=== PATIENT | male | born 1945 | race Caucasian/White ===

== ENCOUNTER 2023-12-04 15:12 | Inpatient (IN) | payer OTHER ==
[~2023-12-04] VITALS: Ht 167.6 cm; Wt 66.7 kg
[2023-12-04 15:34] VITALS: BP_SYST 111; PULSE 73; RESP 22; TEMP 97.3; O2SAT 98
[2023-12-04 17:32] LABS: BASOPHILS % (AUTO) 0.1 % (0.0-2.0); HEMOGLOBIN 8.7 g/dL (14.0-18.0); LYMPHOCYTES # (AUTO) 0.3 K/uL (1.0-5.5); LYMPHOCYTES % (AUTO) 5.8 % (20.5-51.5); MEAN CORPUSCULAR HEMOGLOBIN 24 pg (27-31); MEAN CORPUSCULAR HGB CONC 32 % (32-36); MEAN CORPUSCULAR VOLUME 75 fL (79.0-98.0); MONOCYTES # (AUTO) 0.3 K/uL (0.0-1.0); MONOCYTES % (AUTO) 5.9 % (1.7-9.3); NEUTROPHILS # (AUTO) 4.9 K/uL (1.8-7.7); NEUTROPHILS % (AUTO) 88.2 % (40.0-70.0); PLATELET COUNT (AUTO) 242 K/uL (130-430); RED BLOOD CELL COUNT(AUTO) 3.59 MIL/uL (4.2-6.2); RED CELL DISTRIBUTION WIDTH 26.5 % (9.0-15.0); WHITE BLOOD COUNT (AUTO) 5.6 K/uL (4.8-10.8)
[2023-12-04 17:44] LABS: ANION GAP 9 (5-15); CALCIUM 8.2 mg/dL (8.4-11.0); CARBON DIOXIDE 24 mmol/L (23-29); CHLORIDE 103 mmol/L (98-107); CREATININE 0.76 mg/dL (0.55-1.30); GLUCOSE 88 mg/dL (74-106); POTASSIUM 4.1 mmol/L (3.5-5.1); SODIUM SERUM 136 mmol/L (136-145); UREA NITROGEN, BLOOD 12 mg/dL (8-21)
[2023-12-04 17:45] LABS: INR 1.6 (0.80-1.20); PROTHROMBIN TIME 16.6 SECS (9.5-12.5)
[2023-12-04 17:46] LABS: ANISOCYTOSIS 2+; OVALOCYTES MODERATE
[2023-12-04 17:58] LABS: ALANINE AMINOTRANSFERASE 28 U/L (12-78); ALBUMIN 2.6 g/dL (3.4-4.8); ASPARTATE AMINOTRANSFERASE 24 U/L (10-37); BILIRUBIN,DIRECT 0.4 mg/dL (0.0-0.3); CREATINE KINASE, TOTAL 46 U/L (39-308); FREE T4 (FREE THYROXINE) 1.4 ng/dL (0.6-1.6); THYROID STIMULATING HORMONE 6.85 uIu/mL (0.34-4.82); TOTAL BILIRUBIN 0.9 mg/dL (0.0-1.0); TOTAL PROTEIN, SERUM 6.9 g/dL (6.4-8.3)
[2023-12-04] MEDS ORDERED: TAMS0.4C96 PO (18:52)
[2023-12-04] MEDS ORDERED: LEVO50TA8 PO (18:52)
[2023-12-04] MEDS ORDERED: AMIO200T68 PO (18:52)
[2023-12-04] MEDS ORDERED: LISI10TA29 PO (18:52)
[2023-12-04] MEDS ORDERED: ATOR20TA64 PO (18:52)
[2023-12-04] MEDS ORDERED: CARV25TA55 PO (18:52)
[2023-12-04] MEDS ORDERED: MORPHINE 2 MG/ML INJ. SYRINGE IVP ONE (19:00)
[2023-12-04 19:39] LABS: BILIRUBIN,URINE NEGATIVE (NEGATIVE); BLOOD, URINE 2+ (NEGATIVE); CLARITY/URINE CLEAR (CLEAR); COLOR,URINE YELLOW (YELLOW); GLUCOSE,URINE NEGATIVE (NEGATIVE); KETONES,URINE NEGATIVE (NEGATIVE); LEUKOCYTE ESTERASE ,URINE NEGATIVE (NEGATIVE); NITRITE, URINE NEGATIVE (NEGATIVE); PROTEIN URINE TRACE (NEGATIVE); UROBILINOGEN,URINE 0.2 (0.2-1.0)
[2023-12-04 20:00] VITALS: BP_SYST 140; PULSE 90; RESP 18; TEMP 100; O2SAT 93
[2023-12-04 20:09] LABS: BACTERIA,URINE FEW /HPF (None Seen); WBC,URINE 0-3 /HPF (0-3)
[2023-12-04 20:10] LABS: MUCUS,URINE 2+ /LPF (None Seen)
[2023-12-04 21:25] VITALS: BP_SYST 130; PULSE 82; RESP 20; TEMP 98; O2SAT 95
[2023-12-04] MEDS ORDERED: NALOXONE HCL 0.4 MG/ML AMP (NARCAN) IVP PRN (22:15)
[2023-12-04] MEDS ORDERED: ACETAMINOPHEN 325 MG TABLET PO PRN (22:15)
[2023-12-04] MEDS: D5/0.45 NS 1,000 ML IV SCH (23:25)
[2023-12-05] MEDS: HYDROmorphone 1 MG/ML INJ. CARTRIDGE IVP PRN ×3 (04:20→20:47)
[2023-12-05 07:44] LABS: BASOPHILS % (AUTO) 0.1 % (0.0-2.0); EOSINOPHILS % (AUTO) 0.1 % (0.0-4.0); HEMATOCRIT 24.3 % (36-54); HEMOGLOBIN 7.8 g/dL (14.0-18.0); LYMPHOCYTES # (AUTO) 0.3 K/uL (1.0-5.5); LYMPHOCYTES % (AUTO) 7.1 % (20.5-51.5); MEAN CORPUSCULAR HEMOGLOBIN 24 pg (27-31); MEAN CORPUSCULAR HGB CONC 32 % (32-36); MEAN CORPUSCULAR VOLUME 75 fL (79.0-98.0); MONOCYTES # (AUTO) 0.4 K/uL (0.0-1.0); MONOCYTES % (AUTO) 7.5 % (1.7-9.3); NEUTROPHILS # (AUTO) 4.1 K/uL (1.8-7.7); NEUTROPHILS % (AUTO) 85.2 % (40.0-70.0); PLATELET COUNT (AUTO) 191 K/uL (130-430); RED BLOOD CELL COUNT(AUTO) 3.24 MIL/uL (4.2-6.2); RED CELL DISTRIBUTION WIDTH 27.2 % (9.0-15.0); WHITE BLOOD COUNT (AUTO) 4.8 K/uL (4.8-10.8)
[2023-12-05 07:55] LABS: TOTAL IRON BIND. CAPACITY 201 ug/dL (250-450)
[2023-12-05 07:59] LABS: ANION GAP 8 (5-15); CALCIUM 8.1 mg/dL (8.4-11.0); CARBON DIOXIDE 23 mmol/L (23-29); CHLORIDE 106 mmol/L (98-107); CREATININE 0.67 mg/dL (0.55-1.30); GLUCOSE 97 mg/dL (74-106); POTASSIUM 3.8 mmol/L (3.5-5.1); SODIUM SERUM 137 mmol/L (136-145); UREA NITROGEN, BLOOD 10 mg/dL (8-21)
[2023-12-05 08:00] VITALS: BP_SYST 118; PULSE 77; RESP 16; TEMP 98; O2SAT 98
[2023-12-05] MEDS: LEVOTHYROXINE SODIUM 0.05 MG TABLET PO SCH (09:00)
[2023-12-05] MEDS: CARVEDILOL 25 MG TABLET (COREG) PO SCH ×2 (09:00→20:47)
[2023-12-05] MEDS: ATORVASTATIN 20 MG TABLET PO SCH (09:00)
[2023-12-05] MEDS: AMIODARONE HCL 200 MG TABLET PO SCH (09:00)
[2023-12-05] MEDS: TAMSULOSIN HCL 0.4 MG CAP PO SCH (09:00)
[2023-12-05] MEDS: LISINOPRIL 10 MG TABLET (PRINIVIL) PO SCH (09:00)
[2023-12-05 10:00] VITALS: O2SAT 98
[2023-12-05 12:00] VITALS: BP_SYST 120; PULSE 80; RESP 16; TEMP 98; O2SAT 98
[2023-12-05 12:16] VITALS: BP_SYST 139; PULSE 78; RESP 18; TEMP 97.9; O2SAT 97
[2023-12-05] MEDS ORDERED: DIATR MEGLU/DIATRIZ SOD 30 ML SOLUTION PO ONE (13:41)
[2023-12-05] MEDS: D5/0.45 NS 1,000 ML IV SCH (15:06)
[2023-12-05 16:00] VITALS: BP_SYST 121; PULSE 78; RESP 17; TEMP 98; O2SAT 97
[2023-12-05 16:52] VITALS: BP_SYST 128; PULSE 87; RESP 18; TEMP 98; O2SAT 98
[2023-12-05 17:10] LABS: BASOPHILS % (AUTO) 0.3 % (0.0-2.0); HEMOGLOBIN 9.4 g/dL (14.0-18.0); LYMPHOCYTES # (AUTO) 0.3 K/uL (1.0-5.5); LYMPHOCYTES % (AUTO) 3.5 % (20.5-51.5); MEAN CORPUSCULAR HEMOGLOBIN 25 pg (27-31); MEAN CORPUSCULAR HGB CONC 33 % (32-36); MEAN CORPUSCULAR VOLUME 76 fL (79.0-98.0); MONOCYTES # (AUTO) 0.6 K/uL (0.0-1.0); MONOCYTES % (AUTO) 7.7 % (1.7-9.3); NEUTROPHILS # (AUTO) 6.4 K/uL (1.8-7.7); NEUTROPHILS % (AUTO) 88.5 % (40.0-70.0); PLATELET COUNT (AUTO) 228 K/uL (130-430); RED BLOOD CELL COUNT(AUTO) 3.84 MIL/uL (4.2-6.2); WHITE BLOOD COUNT (AUTO) 7.3 K/uL (4.8-10.8)
[2023-12-05 19:11] LABS: ANISOCYTOSIS 3+; HYPOCHROMASIA 1+; OVALOCYTES MODERATE; TEAR DROP CELLS FEW
[2023-12-05] MEDS: guaiFENesin/DEXTROMETHORPHAN 10 ML UDC PO PRN (20:46)
[2023-12-06] VITALS (8 sets, daily range): BP systolic 112–127; PULSE 69–81; RESP 16–18; TEMP 98–99; O2SAT 93–98
[2023-12-06] MEDS: guaiFENesin/DEXTROMETHORPHAN 10 ML UDC PO PRN ×3 (04:52→16:40)
[2023-12-06 06:45] LABS: ALANINE AMINOTRANSFERASE 19 U/L (12-78); ANION GAP 8 (5-15); ASPARTATE AMINOTRANSFERASE 23 U/L (10-37); CALCIUM 8.2 mg/dL (8.4-11.0); CARBON DIOXIDE 23 mmol/L (23-29); CHLORIDE 103 mmol/L (98-107); CREATININE 0.69 mg/dL (0.55-1.30); GLUCOSE 132 mg/dL (74-106); SODIUM SERUM 134 mmol/L (136-145); TOTAL BILIRUBIN 1.1 mg/dL (0.0-1.0); UREA NITROGEN, BLOOD 10 mg/dL (8-21)
[2023-12-06] MEDS: HYDROmorphone 1 MG/ML INJ. CARTRIDGE IVP PRN ×2 (07:04→21:20)
[2023-12-06 07:18] LABS: BASOPHILS % (AUTO) 0.1 % (0.0-2.0); HEMATOCRIT 26.6 % (36-54); HEMOGLOBIN 8.6 g/dL (14.0-18.0); LYMPHOCYTES # (AUTO) 0.2 K/uL (1.0-5.5); LYMPHOCYTES % (AUTO) 3.4 % (20.5-51.5); MEAN CORPUSCULAR HEMOGLOBIN 24 pg (27-31); MEAN CORPUSCULAR HGB CONC 32 % (32-36); MEAN CORPUSCULAR VOLUME 75 fL (79.0-98.0); MONOCYTES # (AUTO) 0.5 K/uL (0.0-1.0); MONOCYTES % (AUTO) 6.9 % (1.7-9.3); NEUTROPHILS # (AUTO) 6.5 K/uL (1.8-7.7); PLATELET COUNT (AUTO) 197 K/uL (130-430); RED BLOOD CELL COUNT(AUTO) 3.57 MIL/uL (4.2-6.2); RED CELL DISTRIBUTION WIDTH 27.1 % (9.0-15.0); WHITE BLOOD COUNT (AUTO) 7.3 K/uL (4.8-10.8)
[2023-12-06 07:30] LABS: NEUTROPHILS % (AUTO) 89.6 % (40.0-70.0)
[2023-12-06] MEDS: TAMSULOSIN HCL 0.4 MG CAP PO SCH (08:27)
[2023-12-06] MEDS: LEVOTHYROXINE SODIUM 0.05 MG TABLET PO SCH (08:27)
[2023-12-06] MEDS: ATORVASTATIN 20 MG TABLET PO SCH (08:27)
[2023-12-06] MEDS: AMIODARONE HCL 200 MG TABLET PO SCH (08:28)
[2023-12-06] MEDS: CARVEDILOL 25 MG TABLET (COREG) PO SCH ×2 (08:28→20:43)
[2023-12-06] MEDS: LISINOPRIL 10 MG TABLET (PRINIVIL) PO SCH (08:29)
[2023-12-06] MEDS: D5/0.45 NS 1,000 ML IV SCH (08:29)
[2023-12-07] VITALS (9 sets, daily range): BP systolic 107–114; PULSE 60–84; RESP 14–18; TEMP 97.2–99.4; O2SAT 93–96
[2023-12-07 05:14] LABS: INR 1.3 (0.80-1.20); PROTHROMBIN TIME 13.5 SECS (9.5-12.5)
[2023-12-07 05:50] LABS: ALANINE AMINOTRANSFERASE 26 U/L (12-78); ALBUMIN 1.9 g/dL (3.4-4.8); ANION GAP 10 (5-15); ASPARTATE AMINOTRANSFERASE 36 U/L (10-37); CALCIUM 8.5 mg/dL (8.4-11.0); CARBON DIOXIDE 23 mmol/L (23-29); CHLORIDE 102 mmol/L (98-107); CREATININE 0.64 mg/dL (0.55-1.30); GLUCOSE 114 mg/dL (74-106); LIPASE 63 U/L (16-77); POTASSIUM 4.2 mmol/L (3.5-5.1); SODIUM SERUM 135 mmol/L (136-145); TOTAL BILIRUBIN 1.1 mg/dL (0.0-1.0); TOTAL PROTEIN, SERUM 5.9 g/dL (6.4-8.3); UREA NITROGEN, BLOOD 13 mg/dL (8-21)
[2023-12-07 06:20] LABS: BASOPHILS % (AUTO) 0.2 % (0.0-2.0); EOSINOPHILS % (AUTO) 0.2 % (0.0-4.0); HEMATOCRIT 25.7 % (36-54); HEMOGLOBIN 8.2 g/dL (14.0-18.0); LYMPHOCYTES # (AUTO) 0.3 K/uL (1.0-5.5); LYMPHOCYTES % (AUTO) 4.7 % (20.5-51.5); MEAN CORPUSCULAR HEMOGLOBIN 24 pg (27-31); MEAN CORPUSCULAR HGB CONC 32 % (32-36); MEAN CORPUSCULAR VOLUME 75 fL (79.0-98.0); MONOCYTES # (AUTO) 0.5 K/uL (0.0-1.0); MONOCYTES % (AUTO) 8.2 % (1.7-9.3); NEUTROPHILS # (AUTO) 5.2 K/uL (1.8-7.7); NEUTROPHILS % (AUTO) 86.7 % (40.0-70.0); PLATELET COUNT (AUTO) 170 K/uL (130-430); RED BLOOD CELL COUNT(AUTO) 3.42 MIL/uL (4.2-6.2); RED CELL DISTRIBUTION WIDTH 27.5 % (9.0-15.0)
[2023-12-07] MEDS: AMIODARONE HCL 200 MG TABLET PO SCH (10:21)
[2023-12-07] MEDS: ATORVASTATIN 20 MG TABLET PO SCH (10:21)
[2023-12-07] MEDS: TAMSULOSIN HCL 0.4 MG CAP PO SCH (10:21)
[2023-12-07] MEDS: CARVEDILOL 25 MG TABLET (COREG) PO SCH ×2 (10:22→20:50)
[2023-12-07] MEDS: LEVOTHYROXINE SODIUM 0.05 MG TABLET PO SCH (10:22)
[2023-12-07] MEDS: LISINOPRIL 10 MG TABLET (PRINIVIL) PO SCH (10:23)
[2023-12-07] MEDS ORDERED: LevALBUTEROL HCL 1.25 MG/0.5 ML *CONC.* VIAL.NEB (XOPENEX CONC.) INH PRN (15:30)
[2023-12-07] MEDS ORDERED: LevALBUTEROL HCL 1.25 MG/0.5 ML *CONC.* VIAL.NEB (XOPENEX CONC.) INH ONE (15:45)
[2023-12-07] MEDS: SOD FERRIC GLUC COMPLEX/SUC 125 MG in NS 100 ML IV SCH (17:15)
[2023-12-07] MEDS: FERROUS SULFATE 325 MG TABLET.DR PO SCH (20:50)
[2023-12-07] MEDS: MEGESTROL ACETATE 400 MG/10 ML UDC PO SCH (20:50)
[2023-12-07 22:07] LABS: FOLATE (FOLIC ACID) 15.8 ng/mL (>3.0)
[2023-12-07] MEDS: LevALBUTEROL HCL 1.25 MG/0.5 ML *CONC.* VIAL.NEB (XOPENEX CONC.) INH SCH (22:13)
[2023-12-08] VITALS (10 sets, daily range): BP systolic 103–126; PULSE 63–89; RESP 16–18; TEMP 97.5–98.9; O2SAT 93–97
[2023-12-08 04:48] LABS: EOSINOPHILS % (AUTO) 0.4 % (0.0-4.0); HEMATOCRIT 25.4 % (36-54); HEMOGLOBIN 8.2 g/dL (14.0-18.0); LYMPHOCYTES # (AUTO) 0.3 K/uL (1.0-5.5); LYMPHOCYTES % (AUTO) 5.9 % (20.5-51.5); MEAN CORPUSCULAR HEMOGLOBIN 24 pg (27-31); MEAN CORPUSCULAR HGB CONC 32 % (32-36); MEAN CORPUSCULAR VOLUME 75 fL (79.0-98.0); MONOCYTES # (AUTO) 0.4 K/uL (0.0-1.0); MONOCYTES % (AUTO) 8.6 % (1.7-9.3); NEUTROPHILS % (AUTO) 85.1 % (40.0-70.0); PLATELET COUNT (AUTO) 163 K/uL (130-430); RED BLOOD CELL COUNT(AUTO) 3.39 MIL/uL (4.2-6.2); RED CELL DISTRIBUTION WIDTH 27.2 % (9.0-15.0); WHITE BLOOD COUNT (AUTO) 4.7 K/uL (4.8-10.8)
[2023-12-08] MEDS: HYDROmorphone 1 MG/ML INJ. CARTRIDGE IVP PRN (05:20)
[2023-12-08] MEDS: LEVOTHYROXINE SODIUM 0.05 MG TABLET PO SCH (07:03)
[2023-12-08 08:15] LABS: CHOLESTEROL < 50 mg/dL (<200); HDL CHOLESTEROL 17 mg/dL (>45); TRIGLYCERIDES 68 mg/dL (30-150)
[2023-12-08] MEDS: LevALBUTEROL HCL 1.25 MG/0.5 ML *CONC.* VIAL.NEB (XOPENEX CONC.) INH SCH ×3 (08:24→23:03)
[2023-12-08] MEDS ORDERED: ACETAMINOPHEN 325 MG TABLET PO PRN ×3 (08:30→09:00)
[2023-12-08] MEDS: AMIODARONE HCL 200 MG TABLET PO SCH (09:12)
[2023-12-08] MEDS: MEGESTROL ACETATE 400 MG/10 ML UDC PO SCH ×2 (09:12→21:00)
[2023-12-08] MEDS: TAMSULOSIN HCL 0.4 MG CAP PO SCH (09:12)
[2023-12-08] MEDS: LISINOPRIL 10 MG TABLET (PRINIVIL) PO SCH (09:13)
[2023-12-08] MEDS: CARVEDILOL 25 MG TABLET (COREG) PO SCH ×2 (09:13→21:00)
[2023-12-08] MEDS: FERROUS SULFATE 325 MG TABLET.DR PO SCH ×2 (09:13→21:00)
[2023-12-08] MEDS: ATORVASTATIN 20 MG TABLET PO SCH (09:13)
[2023-12-08] MEDS: SOD FERRIC GLUC COMPLEX/SUC 125 MG in NS 100 ML IV SCH (16:56)
[2023-12-09] VITALS (11 sets, daily range): BP systolic 103–149; PULSE 60–77; RESP 17–19; TEMP 97.8–98.5; O2SAT 85–97
[2023-12-09 05:45] LABS: BASOPHILS % (AUTO) 0.2 % (0.0-2.0); EOSINOPHILS % (AUTO) 0.5 % (0.0-4.0); HEMATOCRIT 26.4 % (36-54); HEMOGLOBIN 8.5 g/dL (14.0-18.0); LYMPHOCYTES # (AUTO) 0.3 K/uL (1.0-5.5); LYMPHOCYTES % (AUTO) 5.5 % (20.5-51.5); MEAN CORPUSCULAR HEMOGLOBIN 24 pg (27-31); MEAN CORPUSCULAR HGB CONC 32 % (32-36); MEAN CORPUSCULAR VOLUME 75 fL (79.0-98.0); MONOCYTES # (AUTO) 0.5 K/uL (0.0-1.0); MONOCYTES % (AUTO) 8.5 % (1.7-9.3); NEUTROPHILS # (AUTO) 4.7 K/uL (1.8-7.7); NEUTROPHILS % (AUTO) 85.3 % (40.0-70.0); PLATELET COUNT (AUTO) 200 K/uL (130-430); RED BLOOD CELL COUNT(AUTO) 3.54 MIL/uL (4.2-6.2); RED CELL DISTRIBUTION WIDTH 27.1 % (9.0-15.0)
[2023-12-09] MEDS: LEVOTHYROXINE SODIUM 0.05 MG TABLET PO SCH (05:53)
[2023-12-09] MEDS: LevALBUTEROL HCL 1.25 MG/0.5 ML *CONC.* VIAL.NEB (XOPENEX CONC.) INH SCH ×3 (07:25→23:19)
[2023-12-09 07:52] LABS: WHITE BLOOD COUNT (AUTO) 5.5 K/uL (4.8-10.8)
[2023-12-09 09:18] LABS: ANISOCYTOSIS 1+; HYPOCHROMASIA 1+; OVALOCYTES FEW
[2023-12-09] MEDS: AMIODARONE HCL 200 MG TABLET PO SCH (09:32)
[2023-12-09] MEDS: LISINOPRIL 10 MG TABLET (PRINIVIL) PO SCH (09:32)
[2023-12-09] MEDS: CARVEDILOL 25 MG TABLET (COREG) PO SCH ×2 (09:32→20:57)
[2023-12-09] MEDS: ATORVASTATIN 20 MG TABLET PO SCH (09:32)
[2023-12-09] MEDS: MEGESTROL ACETATE 400 MG/10 ML UDC PO SCH ×2 (09:33→20:56)
[2023-12-09] MEDS: FERROUS SULFATE 325 MG TABLET.DR PO SCH ×2 (09:33→20:57)
[2023-12-09] MEDS: TAMSULOSIN HCL 0.4 MG CAP PO SCH (09:33)
[2023-12-09] MEDS: SOD FERRIC GLUC COMPLEX/SUC 125 MG in NS 100 ML IV SCH (17:22)
[2023-12-10] VITALS (10 sets, daily range): BP systolic 108–130; PULSE 60–73; RESP 16–20; TEMP 97.1–98.3; O2SAT 93–99
[2023-12-10] MEDS: LEVOTHYROXINE SODIUM 0.05 MG TABLET PO SCH (06:17)
[2023-12-10] MEDS: LevALBUTEROL HCL 1.25 MG/0.5 ML *CONC.* VIAL.NEB (XOPENEX CONC.) INH SCH ×2 (07:26→15:29)
[2023-12-10] MEDS: FERROUS SULFATE 325 MG TABLET.DR PO SCH (08:34)
[2023-12-10] MEDS: TAMSULOSIN HCL 0.4 MG CAP PO SCH (08:34)
[2023-12-10] MEDS: AMIODARONE HCL 200 MG TABLET PO SCH (08:35)
[2023-12-10] MEDS: CARVEDILOL 25 MG TABLET (COREG) PO SCH (08:35)
[2023-12-10] MEDS: ATORVASTATIN 20 MG TABLET PO SCH (08:35)
[2023-12-10] MEDS: MEGESTROL ACETATE 400 MG/10 ML UDC PO SCH (08:35)
[2023-12-10] MEDS: LISINOPRIL 10 MG TABLET (PRINIVIL) PO SCH (08:35)
[2023-12-10] MEDS: SOD FERRIC GLUC COMPLEX/SUC 125 MG in NS 100 ML IV SCH (15:53)
[2023-12-10] MEDS ORDERED: RIVAROXABAN 10 MG TABLET PO SCH (18:00)
== END 2023-12-10 19:00 | DRG 811 ==
LOC: SED 15:12 → STU 18:21 → SMU 12-07 21:57
PROVIDERS: ADMIT Family Medicine; ATTEND Family Medicine
DX: D50.9 Iron deficiency anemia, unspecified (principal); E43 Unspecified severe protein-calorie malnutrition; G93.41 Metabolic encephalopathy; G45.9 Transient cerebral ischemic attack, unspecified; D68.9 Coagulation defect, unspecified; G89.18 Other acute postprocedural pain; K75.9 Inflammatory liver disease, unspecified; Z68.23 Body mass index [BMI] 23.0-23.9, adult; I25.10 Atherosclerotic heart disease of native coronary artery without angina pectoris; E03.9 Hypothyroidism, unspecified; Z88.0 Allergy status to penicillin; Z95.1 Presence of aortocoronary bypass graft; K52.9 Noninfective gastroenteritis and colitis, unspecified; R10.9 Unspecified abdominal pain
CPT/HCPCS: 36415; 70450-TC; 71045; 76376; 76700-TC; 80048; 80053; 80061; 80076; 81000; 81001; 81015; 82550; 82607; 82728; 82746; 83037; 83540; 83550; 83605; 83690; 83735; 84439; 84443; 84484; 85025; 85610-TC; 85730-TC; 93005; 93880; 94640; 94664; 94760; 96374; 97110-GP; 97116-GP; 97530-GP; 99285; G0378; J1170; J2270; J2916; J7612; Q9964; Q9967